=== PATIENT | female | born 1960 | race Caucasian/White ===

== ENCOUNTER 2017-11-27 12:51 | Day surgery (SDC) | payer BC ==
[~2017-11-27 12:51] MED LIST: LEVOTAB PO; METH500T3 PO; VALA1TAB PO
[2017-11-27] MEDS ORDERED: IOHEXOL 350 MG/ML 50 ML BTL (for RAD DIAG) OTHER ONE (12:52)
[2017-11-27 13:22] VITALS: BP 121/76; PULSE 88; RESP 20; TEMP 98; O2SAT 100
[2017-11-27] MEDS ORDERED: TRIAMCINOLONE ACETONIDE 40 MG/ML VIAL ONE (13:54)
[2017-11-27] MEDS ORDERED: BUPIVACAINE HCL PF 0.75% 30 ML VIAL ONE (13:54)
[2017-11-27 14:19] VITALS: BP 99/54; PULSE 74; RESP 17; TEMP 97.4; O2SAT 100
--- NOTE | 2017-11-27 14:22 | PD.RAD ---
Post Procedure Progress Note Pre Procedure Diagnosis: (1) Calcific tendinitis of left shoulder Post Procedure Diagnosis: (1) Calcific tendinitis of left shoulder Procedure Date: Nov 27, 2017 Supervising Radiologist: Shakir Rayo Estimated blood loss: none Anesthesia: Local Plan of Activity Patient to Unit: ROPU Patient Condition: Good Additional Comments: Left shoulder aspiration attempted. No fluid obtained in spite of multiple attempts. Position in the joint confirmed. Steroids administered into the joint See PACS Report for procedural detail/treatment Shakir Rayo MD Nov 27, 2017 14:22
--- NOTE | 2017-11-27 14:58 | RADRPT ---
EXAM DATE/TIME: 11/27/2017 15:06 [facility] COMPARISON: No previous studies available for comparison. INDICATIONS : Patient with left shoulder tendonitis in need of steroid injection. MEDICAL HISTORY : None SURGICAL HISTORY : L5-S1 surgery ENCOUNTER: Initial ACUITY: 3 weeks PAIN SCORE: 0/10 FLUORO TIME: 5.5 minutes IMAGE SERIES: 2 CONTRAST: 2cc Omnipaque (iohexol) 350 DEVICE: 22 gauge needle was placed into the left shoulder joint MEDICATIONS: 1.) 1 cc triamcinolone (Kenalog) IA 2.) 2 cc bupivicaine (Marcaine) IA 3.) 2 cc Lidocaine IA RESPONSE: Pre procedure pain level was 0/10. Post procedure pain level was 0/10. PROCEDURE : The risks, benefits and alternatives to the procedure were explained and verbal and written consent w as obtained. The site was prepped in sterile fashion. Full sterile technique was used, including ca p, mask, sterile gloves and gown and a large sterile sheet. Hand hygiene and 2% chlorhexidine and/or betadine/alcohol prep was utilized per protocol for cutaneous antisepsis. The skin and subcutaneous tissues were infiltrated with local anesthetic solution. Under sterile conditions and using aseptic technique with fluoroscopic guidance the joint was punctur ed and multiple attempts were made to aspirate fluid. Position within the joint was confirmed with a small injection of contrast. Multiple aspiration sites were attempted. No fluid could be obtained. Position within the joint was confirmed with a small injection of contrast. A mixture of 1 cc of Marli log, 2 cc lidocaine and 2 cc of Marcaine was administered into the joint without difficulty. CONCLUSION: 1. Multiple attempts were made to aspirate fluid from the joint at 3 different sites. No fluid could be aspirated. 2. Uncomplicated therapeutic injection performed under fluoroscopic guidance. Shakir Rayo MD on November 27, 2017 at 14:54 Board Certified Radiologist. This report was verified electronically.
== END 2017-11-27 14:45 | disposition home or self-care (01) ==
LOC: HROP 12:51 → HRIP 12:51 → HROP 14:45
PROVIDERS: ATTEND Orthopaedic Surgery
DX: M75.32 Calcific tendinitis of left shoulder (principal)
CPT/HCPCS: 20610; 77002; J3301; Q9967